=== PATIENT | male | born 1975 ===

== ENCOUNTER 2025-08-14 20:03 | Emergency (ER) | payer OTHER ==
[~2025-08-14] VITALS: Ht 172.7 cm; Wt 82.7 kg
[2025-08-14 20:32] VITALS: BP 147/102; PULSE 98; RESP 18; TEMP 98.6; O2SAT 96
== END 2025-08-14 21:25 ==
LOC: EMS 20:03
DX: I12.9 Hypertensive chronic kidney disease with stage 1 through stage 4 chronic kidney disease, or unspecified chronic kidney disease (principal); E11.22 Type 2 diabetes mellitus with diabetic chronic kidney disease; N18.9 Chronic kidney disease, unspecified; Z76.0 Encounter for issue of repeat prescription
CPT/HCPCS: 99283